=== PATIENT | female | born 1995 | race Caucasian/White ===

== ENCOUNTER 2023-02-24 02:01 | Emergency (ER) | payer OTHER ==
[~2023-02-24] VITALS: Ht 172.7 cm; Wt 74.8 kg
[2023-02-24 02:31] VITALS: BP 101/62
== END 2023-02-24 02:53 | disposition home or self-care (01) ==
LOC: ER 02:01
DX: R13.10 Dysphagia, unspecified (principal)
CPT/HCPCS: 99282